=== PATIENT | female | born 1970 | race Caucasian/White ===

== ENCOUNTER 2019-09-08 20:55 | Emergency (ER) | payer OTHER ==
[2019-09-08 21:00] VITALS: TEMP 98.3; BMI 25.3
--- NOTE | 2019-09-08 21:39 | PDOC ---
History of Present Illness - General Chief Complaint: Chest Pain Stated Complaint: CHEST PAIN Time Seen by Provider: 09/08/19 21:05 - History of Present Illness Initial Comments: Ms. Leroy is a 48 y/o female with PMH significant for vertigo (on meclizine) and anxiety who presents today with left sided chest pressure. Reports that this morning she started having a right frontal headache (which she has experienced before) and subsequently followed by chest pressure and nausea and vertigo. Reports that she presents today because she was concerned about the chest pressure. Reports that she also has heart palpitations which are similar to her prior episodes of anxiety though this has lasted longer. No pleuritic chest pain, no shortness of breath. Denies fever, chills, vomiting, abdominal pain, urinary symptoms, change in stool, lower extremity swelling. Past History - Past Medical History Allergies/Adverse Reactions: Allergies Allergy/AdvReac Type Severity Reaction Status Date / Time No Known Allergies Allergy Verified 09/08/19 21:01 Home Medications: Ambulatory Orders Meclizine HCl [Antivert -] 25 mg PO DAILY PRN 09/08/19 COPD: No - Psycho Social/Smoking Cessation Hx Smoking History: Never smoked Review of Systems - Review of Systems Comments:: GENERAL/CONSTITUTIONAL: No fever or chills. No weakness._ HEAD, EYES, EARS, NOSE AND THROAT: No change in vision. No change in hearing. No sore throat._ CARDIOVASCULAR: No chest pain or shortness of breath. Reports chest pressure. RESPIRATORY: Denies cough, hemoptysis_ GASTROINTESTINAL: No nausea, vomiting, diarrhea or constipation._ GENITOURINARY: No dysuria, frequency, or change in urination._ MUSCULOSKELETAL: No joint or muscle swelling or pain. No neck or back pain._ SKIN: No rash_ NEUROLOGIC: Reports headache and vertigo. loss of consciousness, or change in strength/sensation._ ENDOCRINE: No increased thirst. No abnormal weight change_ HEMATOLOGIC/LYMPHATIC: No anemia, easy bleeding, or history of blood clots._ ALLERGIC/IMMUNOLOGIC: No hives or skin allergy._ *Physical Exam - Vital Signs Last Vital Signs Temp Pulse Resp BP Pulse Ox 98.3 F 64 18 142/88 99 09/08/19 20:58 09/08/19 20:58 09/08/19 20:58 09/08/19 20:58 09/08/19 20:58 - Physical Exam Comments: GENERAL: Awake, alert, and oriented to person/place/time, in no acute distress_ HEAD: No signs of trauma, normocephalic, atraumatic _ EYES: PERRLA, EOMI, sclera anicteric, conjunctiva clear_ ENT: Hearing grossly normal, nares patent, oropharynx clear without exudates. No uvular deviation. Moist mucosa_ NECK: Normal ROM, supple, no lymphadenopathy, JVD, or masses_ LUNGS: No distress, speaks in full sentences, clear to auscultation bilaterally _ CHEST: No TTP to chest wall. No bruises, or rash. HEART: Regular rate and rhythm, normal S1 and S2, no murmurs appreciated, peripheral pulses normal and equal bilaterally._ ABDOMEN: Soft, nontender, normoactive bowel sounds. No guarding, no rebound. No masses_ EXTREMITIES: Normal inspection, Normal range of motion, no edema. No clubbing or cyanosis_ NEUROLOGICAL: Cranial nerves II through XII grossly intact. Normal speech, normal gait, no focal sensorimotor deficits _ SKIN: Warm, Dry, normal turgor, no rashes or lesions noted_ ED Treatment Course - LABORATORY CBC & Chemistry Diagram: 09/08/19 21:55 09/08/19 21:55 - ADDITIONAL ORDERS Additional order review: Laboratory Results 09/08/19 21:55 Sodium 138 Potassium 3.7 Chloride 103 Carbon Dioxide 27 Anion Gap 7 L BUN 9.5 Creatinine 0.6 Est GFR (CKD-EPI)AfAm 126.69 Est GFR (CKD-EPI)NonAf 109.31 Random Glucose 94 Calcium 9.1 Total Bilirubin 0.3 AST 12 L ALT 15 Alkaline Phosphatase 71 Troponin I < 0.02 Total Protein 7.5 Albumin 3.6 09/08/19 21:55 RBC 4.73 MCV 83.6 MCHC 34.9 RDW 13.3 MPV 8.6 Neutrophils % 58.4 Lymphocytes % 32.5 Monocytes % 6.4 Eosinophils % 1.7 Basophils % 1.0 Medical Decision Making - Medical Decision Making 48F hx of vertigo and anxiety presenting with left sided chest pressure that started today. DDx includes likely anxiety vs musculoskeletal chest pain vs r/o ACS. -cbc, cmp, trop 09/08/19 21:05 EKG shows NSR, 67 bpm, no axis deviation, no ST elevation/depression, QTc 433. 09/08/19 22:55 Labs reviewed. Trop negative. Plan to d/c home, f/u PCP. CBC,CMP WBC 9.2 K/mm3 (4.0-10.0) 09/08/19 21:55 RBC 4.73 M/mm3 (3.60-5.2) 09/08/19 21:55 Hgb 13.8 GM/dL (10.7-15.3) 09/08/19 21:55 Hct 39.5 % (32.4-45.2) 09/08/19 21:55 MCV 83.6 fl (80-96) 09/08/19 21:55 MCH 29.1 pg (25.7-33.7) 09/08/19 21:55 MCHC 34.9 g/dl (32.0-36.0) 09/08/19 21:55 RDW 13.3 % (11.6-15.6) 09/08/19 21:55 Plt Count 313 K/MM3 (134-434) 09/08/19 21:55 MPV 8.6 fl (7.5-11.1) 09/08/19 21:55 Absolute Neuts (auto) 5.4 K/mm3 (1.5-8.0) 09/08/19 21:55 Neutrophils % 58.4 % (42.8-82.8) 09/08/19 21:55 Lymphocytes % 32.5 % (8-40) 09/08/19 21:55 Monocytes % 6.4 % (3.8-10.2) 09/08/19 21:55 Eosinophils % 1.7 % (0-4.5) 09/08/19 21:55 Basophils % 1.0 % (0-2.0) 09/08/19 21:55 Nucleated RBC % 0 % (0-0) 09/08/19 21:55 Sodium 138 mmol/L (136-145) 09/08/19 21:55 Potassium 3.7 mmol/L (3.5-5.1) 09/08/19 21:55 Chloride 103 mmol/L (98-107) 09/08/19 21:55 Carbon Dioxide 27 mmol/L (21-32) 09/08/19 21:55 Anion Gap 7 MMOL/L (8-16) L 09/08/19 21:55 BUN 9.5 mg/dL (7-18) 09/08/19 21:55 Creatinine 0.6 mg/dL (0.55-1.3) 09/08/19 21:55 Est GFR (CKD-EPI)AfAm 126.69 09/08/19 21:55 Est GFR (CKD-EPI)NonAf 109.31 09/08/19 21:55 Random Glucose 94 mg/dL (74-106) 09/08/19 21:55 Calcium 9.1 mg/dL (8.5-10.1) 09/08/19 21:55 Total Bilirubin 0.3 mg/dL (0.2-1) 09/08/19 21:55 AST 12 U/L (15-37) L 09/08/19 21:55 ALT 15 U/L (13-61) 09/08/19 21:55 Alkaline Phosphatase 71 U/L (45-117) 09/08/19 21:55 Troponin I < 0.02 ng/ml (0.00-0.05) 09/08/19 21:55 Total Protein 7.5 g/dl (6.4-8.2) 09/08/19 21:55 Albumin 3.6 g/dl (3.4-5.0) 09/08/19 21:55 Discharge - Discharge Information Problems reviewed: Yes Clinical Impression/Diagnosis: Chest pressure Condition: Stable Disposition: HOME - Admission No - Follow up/Referral Referrals: ON STAFF,NOT [Primary Care Provider] - - Patient Discharge Instructions Additional Instructions: Please make an appointment to follow up with your primary care physician. If you experience any new, worsening, or concerning symptoms, including severe chest pain, nausea, vomiting, sweating, loss of consciousness, or any other concerns, please return to the emergency department. - Post Discharge Activity
[2019-09-08 22:04] LABS: EOS % 1.7 % (0-4.5); HEMATOCRIT 39.5 % (32.4-45.2); HEMOGLOBIN 13.8 GM/dL (10.7-15.3); LYMPH % 32.5 % (8-40); MCH 29.1 pg (25.7-33.7); MCHC 34.9 g/dl (32.0-36.0); MEAN CELL VOLUME 83.6 fl (80-96); MEAN PLT VOLUME 8.6 fl (7.5-11.1); MONO % 6.4 % (3.8-10.2); NEUT % 58.4 % (42.8-82.8); PLATELET COUNT 313 K/MM3 (134-434); RBC 4.73 M/mm3 (3.60-5.2); RDW 13.3 % (11.6-15.6); WHITE BLOOD COUNT 9.2 K/mm3 (4.0-10.0)
--- NOTE | 2019-09-08 22:15 | PDOC ---
Documentation entered by Ray Bradford SCRIBE, acting as scribe for Malcom Alba MD. Malcom Alba MD: This documentation has been prepared by the Sanchez falk Daniel, SCRIBE, under my direction and personally reviewed by me in its entirety. I confirm that the documentation accurately reflects all work, treatment, procedures, and medical decision making performed by me. Attending Attestation - Resident Resident Name: Morgan Madrigal - ED Attending Attestation I have performed the following: I have examined & evaluated the patient, The case was reviewed & discussed with the resident, I agree w/resident's findings & plan, Exceptions are as noted - HPI HPI: 09/08/19 21:45 The patient is a 48 year old female with a past medical history of vertigo and anxiety here today for evaluation of headache and chest pain. The patient reports that around 8 AM today she developed a right sided frontal headache. She notes that 1 hour later she developed left sided chest pressure that is non pleuritic and palpitations. She also notes associated nausea. Patient denies headache, lightheadedness. Denies fever, chills. Denies shortness of breath. Denies vomiting, diarrhea, abdominal pain. Allergies: NKA - Physicial Exam PE: 09/08/19 21:45 Vitals: Triage vital signs reviewed General Appearance: No acute distress, well nourished, well developed Head: Atraumatic Neck: Supple; No nuchal rigidity Chest Wall: Nontender Cardiac: Regular rate and rhythm, no murmurs, no rubs, no gallops Lungs: Clear to auscultation bilateral, good air movement bilaterally Abdomen: Soft, nondistended, normal bowel sounds, nontender to palpation Extremities: Full range of motion to all extremities, no cyanosis, clubbing, or edema Skin: Warm and dry, no rashes or lesions, no rash, no petechiae Psych: Normal mood, normal affect - Medical Decision Making 09/10/19 00:12 Atypical chest discomfort Heart score 1 Troponin negative Patient stable for outpatient follow-up well-appearing no apparent distress currently asymptomatic Findings, the need for follow-up and strict return instructions discussed with patient. Heart Score/ECG Review - History History: Slightly suspicious - Electrocardiogram EKG: Normal - Age Age: 45-65 - Risk Factors Based on the list above the patient has:: No risk factors known - Troponin Troponin: </= normal limit - Score Heart Score - Total: 1 - ECG Impressions Comment:: 09/08/19 22:15 Patient is labs 3 months with EKG performed at 2103 demonstrates normal sinus rhythm no ST elevations or T wave inversions Interpreted by me.
[2019-09-08 22:43] LABS: ALBUMIN 3.6 g/dl (3.4-5.0); ALK PHOS 71 U/L (45-117); ANION GAP 7 MMOL/L (8-16); BILIRUBIN,TOTAL 0.3 mg/dL (0.2-1); BLOOD UREA NITROGEN 9.5 mg/dL (7-18); CALCIUM 9.1 mg/dL (8.5-10.1); CHLORIDE 103 mmol/L (98-107); CO2 27 mmol/L (21-32); CREATININE 0.6 mg/dL (0.55-1.3); GLUCOSE,RANDOM 94 mg/dL (74-106); POTASSIUM 3.7 mmol/L (3.5-5.1); SGOT/AST 12 U/L (15-37); SGPT/ALT 15 U/L (13-61); SODIUM 138 mmol/L (136-145); TOT PROT 7.5 g/dl (6.4-8.2)
[2019-09-08 23:55] VITALS: BP 135/88; PULSE 73
--- NOTE | 2019-09-09 16:59 | EKG ---
Test Reason : Blood Pressure : / mmHG Vent. Rate : 068 BPM Atrial Rate : 068 BPM P-R Int : 126 ms QRS Dur : 088 ms QT Int : 412 ms P-R-T Axes : 044 010 030 degrees QTc Int : 438 ms POOR DATA QUALITY, INTERPRETATION MAY BE ADVERSELY AFFECTED NORMAL SINUS RHYTHM INCOMPLETE RBBB POSSIBLE LEFT ATRIAL ENLARGEMENT NO PREVIOUS ECGS AVAILABLE Confirmed by ROBSON COSME MD ([id number]) on 09/09/2019 4:59:02 PM Referred By: Confirmed By:ROBSON COSME MD
== END 2019-09-08 23:50 | disposition home or self-care (01) ==
LOC: JER 20:55
DX: R07.9 Chest pain, unspecified (principal); F41.9 Anxiety disorder, unspecified
CPT/HCPCS: 36415; 80053; 84484; 85025; 93005; 93010; 99283-25

== ENCOUNTER 2021-05-25 15:37 | Emergency (ER) | payer OTHER ==
[2021-05-25 16:03] VITALS: BP 119/81; PULSE 74; TEMP 98.2; BMI 24.7
[2021-05-25 17:13] LABS: BASO % 1.3 % (0-2.0); EOS % 1.4 % (0-4.5); HEMATOCRIT 39.9 % (32.4-45.2); HEMOGLOBIN 13.9 GM/dL (10.7-15.3); LYMPH % 32.8 % (8-40); MCH 28.7 pg (25.7-33.7); MCHC 34.9 g/dl (32.0-36.0); MEAN CELL VOLUME 82.1 fl (80-96); MONO % 6.6 % (3.8-10.2); NEUT % 57.9 % (42.8-82.8); PLATELET COUNT 315 10^3/uL (134-434); RBC 4.85 M/mm3 (3.60-5.2); RDW 13.9 % (11.6-15.6); WHITE BLOOD COUNT 10.5 K/mm3 (4.0-10.0)
[2021-05-25 17:31] LABS: CHLORIDE 105 mmol/L (98-107); SODIUM 138 mmol/L (136-145)
[2021-05-25 17:34] LABS: CALCIUM 8.7 mg/dL (8.5-10.1)
[2021-05-25 17:35] LABS: ALBUMIN 3.6 g/dl (3.4-5.0); ANION GAP 5 MMOL/L (8-16); CO2 29 mmol/L (21-32); GLUCOSE,RANDOM 78 mg/dL (74-106)
[2021-05-25 17:38] LABS: CREATININE 0.6 mg/dL (0.55-1.3); SGOT/AST 10 U/L (15-37); SGPT/ALT 21 U/L (13-61)
[2021-05-25 17:40] LABS: TOT PROT 7.8 g/dl (6.4-8.2)
[2021-05-25 17:41] LABS: ALK PHOS 80 U/L (45-117)
[2021-05-25 17:44] LABS: BILIRUBIN,TOTAL 0.3 mg/dL (0.2-1)
== END 2021-05-25 18:33 | disposition home or self-care (01) ==
LOC: JER 15:37
DX: R07.9 Chest pain, unspecified (principal)
CPT/HCPCS: 36415; 71046-TC-FY; 80053; 84484; 85025; 93005; 93010; 99285-25

== ENCOUNTER 2024-01-28 21:07 | Emergency (ER) | payer OTHER ==
[2024-01-28] MEDS: MECLIZINE HCL 25 MG TABLET (FP) PO ONE (21:36)
[2024-01-28] MEDS: ACETAMINOPHEN 1000 MG/100 ML BAG IVPB ONE (21:36)
[2024-01-28] MEDS: SODIUM CHLORIDE 0.9% 500 ML INFUS.BAG IV ONE ×2 (21:37→23:26)
[2024-01-28] MEDS ORDERED: MECLIZINE HCL 25 MG TABLET (FP) ONE (21:39)
[2024-01-28] MEDS ORDERED: ACETAMINOPHEN INJECTION 100 ML IVPB ONE (21:39)
[2024-01-28 22:09] LABS: BASO % 1.2 % (0-2.0); EOS % 4.6 % (0-4.5); HEMATOCRIT 39.5 % (32.4-45.2); HEMOGLOBIN 13.6 GM/dL (10.7-15.3); LYMPH % 36.2 % (8-40); MCH 28.2 pg (25.7-33.7); MCHC 34.4 g/dl (32.0-36.0); MONO % 8.2 % (3.8-10.2); NEUT % 49.8 % (42.8-82.8); PLATELET COUNT 341 10^3/uL (134-434); RBC 4.81 M/mm3 (3.60-5.2); RDW 13.9 % (11.6-15.6); WHITE BLOOD COUNT 9.7 K/mm3 (4.0-10.0)
[2024-01-28 22:20] LABS: INR 1.08 (0.83-1.09); PROTHROMBIN TIME (PATIENT) 12.5 SEC (9.7-13.0)
[2024-01-28 22:23] LABS: ACTIVATED PTT 30.1 SECONDS (25.2-36.5)
[2024-01-28 22:28] LABS: POTASSIUM 3.9 mmol/L (3.5-5.1)
[2024-01-28 22:33] LABS: ALBUMIN 3.4 g/dl (3.4-5.0); BLOOD UREA NITROGEN 17.4 mg/dL (7-18)
[2024-01-28 22:36] LABS: CREATININE 0.9 mg/dL (0.55-1.3)
[2024-01-28 22:37] LABS: BILIRUBIN,TOTAL 0.3 mg/dL (0.2-1); TOT PROT 7.2 g/dl (6.4-8.2)
[2024-01-28 23:06] LABS: EPI CELLS 17 /uL (0-25.1); HYALINE CASTS 0 /uL (0-3.1); PH,URINE 6.5 (5.0-8.0); URINE APPEARANCE CLEAR; URINE BACTERIA 130 /uL (0-1359); URINE BILIRUBIN NEGATIVE (NEGATIVE); URINE COLOR YELLOW; URINE GLUCOSE (UA) NEGATIVE (NEGATIVE); URINE KETONE NEGATIVE (NEGATIVE); URINE LEUK ESTERASE 2+ (NEGATIVE); URINE NITRITE NEGATIVE (NEGATIVE); URINE PROTEIN NEGATIVE (NEGATIVE); URINE RBC 5 /uL (0-23.9); URINE UROBILINOGEN 0.2 mg/dL (0.2-1.0); URINE WBC 55 /uL (0-25.8)
[2024-01-28] MEDS: LORazepam 2 MG/ML SDV VIAL IVPUSH ONE (23:26)
[2024-01-28 23:41] VITALS: PULSE 88; RESP 18; TEMP 97.5; BMI 24.7
[2024-01-28 23:44] VITALS: BP 133/82
[2024-01-28 23:51] LABS: THROAT:GRP A STREP NOT DETECTED (NOTDETECTED)
== END 2024-01-29 00:03 | disposition home or self-care (01) ==
LOC: JER 21:07
PROC: 3E033NZ Introduction of Analgesics, Hypnotics, Sedatives into Peripheral Vein, Percutaneous Approach (ICD-10-PCS; principal; 2024-01-28)
PROC: 3E033NZ Introduction of Analgesics, Hypnotics, Sedatives into Peripheral Vein, Percutaneous Approach (ICD-10-PCS; 2024-01-28)
DX: R07.9 Chest pain, unspecified (principal); R42 Dizziness and giddiness; R05.9 Cough, unspecified; R07.0 Pain in throat; R09.81 Nasal congestion; Z20.822 Contact with and (suspected) exposure to COVID-19
CPT/HCPCS: 0241U-QW; 36415; 70450-TC; 71045-TC-FY; 80053; 81003; 84484; 85025; 85610; 85730; 87086; 87651; 93005; 93010; 99285-25; J0131

== ENCOUNTER 2024-06-13 11:25 | Emergency (ER) | payer OTHER ==
[2024-06-13 11:31] VITALS: BP 125/82; PULSE 65; RESP 18; TEMP 97.5; BMI 24.7
[2024-06-13] MEDS ORDERED: IBUPROFEN 600 MG TABLET (FP) PO ONE (14:11)
[2024-06-13] MEDS ORDERED: MECLIZINE HCL 25 MG TABLET (FP) ONE (14:11)
[2024-06-13] MEDS: MECLIZINE HCL 25 MG TABLET (FP) PO ONE (14:15)
[2024-06-13] MEDS: IBUPROFEN 600 MG TABLET (FP) PO ONE (14:15)
== END 2024-06-13 15:36 | disposition home or self-care (01) ==
LOC: JER 11:25
DX: R42 Dizziness and giddiness (principal); R20.2 Paresthesia of skin; R51.9 Headache, unspecified; M54.2 Cervicalgia; M62.10 Other rupture of muscle (nontraumatic), unspecified site; M79.602 Pain in left arm
CPT/HCPCS: 93005; 93010; 99283-25